=== PATIENT | female | born 1970 | race Caucasian/White ===

== ENCOUNTER 2017-12-12 18:56 | Inpatient (IN) | payer OTHER ==
[2017-12-12 20:07] LABS: BASO # 0.1 K/uL (0.0-0.2); BASO % 0.9 % (0.0-2.0); EOS # 0.2 K/uL (0.0-0.7); EOS % 1.6 % (0.0-4.0); LYMPH # 0.9 K/uL (1.0-4.3); LYMPH % 8.8 % (20.0-40.0); MEAN CELL VOLUME 97.1 fl (81.0-99.0); MEAN CORPUSCULAR HEMOGLOBIN 33.1 pg (27.0-31.0); MEAN CORPUSCULAR HGB CONC 34.2 g/dL (33.0-37.0); MEAN PLATELET VOLUME 7.8 fl (7.2-11.7); MONO # 0.4 K/uL (0.0-0.8); MONO % 3.5 % (0.0-10.0); NEUT # 9.1 K/uL (1.8-7.0); NEUT % 85.2 % (50.0-75.0); PLATELET COUNT 167 K/uL (130-400); RBC 2.71 Mil/uL (3.80-5.20); RED CELL DISTRIBUTION WIDTH 15.3 % (11.5-14.5); WHITE BLOOD COUNT 10.7 K/uL (4.8-10.8)
[2017-12-12 20:23] LABS: PROTHROMBIN TIME 11.6 Seconds (9.8-13.1)
[2017-12-12 20:24] LABS: PARTIAL THROMBOPLASTIN TIME 25.9 Seconds (25.6-37.1)
[2017-12-12 20:54] LABS: ANISOCYTOSIS SLIGHT; BANDS 2 % (0-2); BASOPHIL 1 % (0-2); EOSINOPHIL 2 % (0-7); LYMPHOCYTE 12 % (20-50); MONOCYTE 5 % (0-10); NEUTROPHIL 78 % (42-75); PLATELET ESTIMATE NORMAL (NORMAL); TOTAL CELLS COUNTED 100
[2017-12-12 20:57] LABS: ALB/GLOB RATIO 1.2 (1.0-2.1); ALBUMIN 4.1 g/dL (3.5-5.0); CALCIUM 8.2 mg/dL (8.4-10.2)
[2017-12-12] MEDS ORDERED: Sod Polystyrene Sulf 15 gm/60 ml Susp PO STA (21:10)
[2017-12-12] MEDS ORDERED: FAMOTIDINE 20 MG PO SCH (22:00)
--- NOTE | 2017-12-12 22:09 | ED PDOC ---
HPI: SOB/CHF/COPD Time Seen by Provider: 12/12/17 19:22 Chief Complaint (Nursing): Weakness/Neurological Deficit Chief Complaint (Provider): Weakness and Body Ache History Per: Patient History/Exam Limitations: no limitations Onset/Duration Of Symptoms: Days (1x) Current Symptoms Are (Timing): Still Present Associated Symptoms: denies: Fever, Chest Pain, Productive Cough Additional Complaint(s): 47 year old female with a history of Nile's granulomatosis and renal disease presents to the ED for body ache and weakness onset for one day. Reports she missed her dialysis for the last 5 sessions due to transportation issues. Currently, she feels weak and has fatigue. Patient also has shortness of breath at times. She denies fever, cough, or chest pain. PMD: Alfa Yancey Past Medical History Reviewed: Historical Data, Nursing Documentation, Vital Signs Vital Signs: Last Vital Signs Temp 98.6 F 12/13/17 00:00 Pulse 90 12/13/17 00:00 Resp 18 12/13/17 00:00 BP 147/94 H 12/13/17 00:00 Pulse Ox 100 12/13/17 00:00 - Medical History PMH: Anxiety, Depression, Seizures Other PMH: Nile's granulomatosis and renal disease - Surgical History Other surgeries: left arteriovenous fistula - Family History Family History: States: Unknown Family Hx - Social History Current smoker - smoking cessation education provided: No Alcohol: None Drugs: Denies - Immunization History Hx Tetanus Toxoid Vaccination: No Hx Influenza Vaccination: No Hx Pneumococcal Vaccination: No - Home Medications Home Medications: Ambulatory Orders Medication Instructions Recorded Alprazolam [Alprazolam Odt] 1 mg PO HS PRN 12/12/17 Budesonide [Pulmicort Respules] 0.5 mg IH BID 12/12/17 Cyanocobalamin [Vitamin B12 1000 1 ml IM QWK 12/12/17 mcg/ml Inj] Divalproex [Depakote ER] 250 mg PO BID 12/12/17 Fluoxetine HCl [Prozac] 40 mg PO DAILY 12/12/17 Folic Acid 1 mg PO DAILY 12/12/17 Gabapentin [Neurontin] 100 mg PO BID 12/12/17 Magnesium Oxide [Mag-Ox] 400 mg PO BID 12/12/17 Mirtazapine [Remeron] 15 mg PO HS 12/12/17 Pantoprazole Sodium [Protonix] 40 mg PO DAILY 12/12/17 predniSONE [predniSONE Tab] 5 mg PO DAILY 12/12/17 - Allergies Allergies/Adverse Reactions: Allergies Allergy/AdvReac Type Severity Reaction Status Date / Time No Known Allergies Allergy Unverified 07/15/13 11:18 Review of Systems ROS Statement: Except As Marked, All Systems Reviewed And Found Negative Constitutional: Positive for: Weakness, Other (body ache). Negative for: Fever Cardiovascular: Negative for: Chest Pain Respiratory: Positive for: Shortness of Breath. Negative for: Cough Physical Exam - Reviewed Nursing Documentation Reviewed: Yes Vital Signs Reviewed: Yes - Physical Exam Appears: Positive for: Non-toxic, No Acute Distress. Negative for: Well ( cachectic) Head Exam: Positive for: ATRAUMATIC, NORMAL INSPECTION, NORMOCEPHALIC Skin: Negative for: Normal Color (vitiligo) Eye Exam: Positive for: EOMI, Normal appearance, PERRL ENT: Positive for: Normal ENT Inspection, Other (facial deformity of nose and mouth, cleft lift (result of Nile's granulomatosis)) Neck: Positive for: Normal, Painless ROM, Supple. Negative for: Decreased ROM Cardiovascular/Chest: Positive for: Regular Rate, Rhythm. Negative for: Murmur Respiratory: Positive for: Normal Breath Sounds. Negative for: Decreased Breath Sounds, Accessory Muscle Use, Respiratory Distress Gastrointestinal/Abdominal: Positive for: Normal Exam, Bowel Sounds, Soft. Negative for: Tenderness, Guarding, Rebound Back: Positive for: Normal Inspection. Negative for: L CVA Tenderness, R CVA Tenderness Extremity: Positive for: Normal ROM. Negative for: Tenderness, Pedal Edema, Deformity Neurologic/Psych: Positive for: Alert, Oriented (x3). Negative for: Motor/ Sensory Deficits - Laboratory Results Result Diagrams: 12/12/17 19:30 12/12/17 20:00 - ECG O2 Sat by Pulse Oximetry: 97 (RA) Pulse Ox Interpretation: Normal Medical Decision Making Medical Decision Making: Time: 1922 Initial Impression: 47 year old female with weakness due to missed dialysis Initial Plan: --EKG --CMP --Valproic Acid --CBC w/ Differential --PTT --Prothrombin Time --Chest Portable [RAD] --Morphine 2 mg --kayeXALATE 30gm --IV INsertion --Reevaluation Time: [address] Watkins, her forest fire officer. Patient will be admitted for dialysis. Case referred to the hospitalist, Dr. Ramos for metabolic acidosis, hyperkalemia, ESRD. Scribe Attestation: Documented by Melissa Wilkinson, acting as a scribe for Tremaine Garza MD Provider Scribe Attestation: All medical record entries made by the Scribe were at my direction and personally dictated by me. I have reviewed the chart and agree that the record accurately reflects my personal performance of the history, physical exam, medical decision making, and the department course for this patient. I have also personally directed, reviewed, and agree with the discharge instructions and disposition. Disposition - Clinical Impression Clinical Impression: Generalized muscle weakness, ESRD (end stage renal disease) on dialysis, Metabolic acidosis, Hyperkalemia - Patient ED Disposition Is Patient to be Admitted: Yes Discussed With DrMaria Del Carmen: Gm Watkins (Dr Ramos) - Disposition Disposition Time: 20:30 Condition: FAIR
--- NOTE | 2017-12-12 22:43 | CP.PCM.HP ---
History of Present Illness - History of Present Illness History of Present Illness: CC: missed HD several times HPI: This is a 47 y/o female with ESRD on HD, Nile's granulomatosis, and seizure disorder who comes in to the ED for generalized weakness and bodyaches for about 1 day. She states that she has missed her last 5 HD sessions because of issues with transportation. In addition to weakness, patient states she does have some nausea but no vomiting, and she has some SOB. Denies f/c. Denies cough. Denies CP. ROS: 14 systems reviewed, negative other than HPI MHx: Nile's granulomatosis, seizure disorder, ESRD on HD SHx: L AV fistula for dialysis Allergies: NKDA Medications: Per med rec, pending complettion Family Hx: Patient does not note any family relevant family Hx Social Hx: Lives with family, no tobacco, no EtOH Present on Admission - Present on Admission Any Indicators Present on Admission: No Past Patient History - Past Social History Alcohol: None Drugs: Denies - NEUROLOGICAL Hx Seizures: Yes - PSYCHIATRIC Hx Anxiety: Yes Hx Depression: Yes Meds Allergies/Adverse Reactions: Allergies Allergy/AdvReac Type Severity Reaction Status Date / Time No Known Allergies Allergy Unverified 07/15/13 11:18 Physical Exam - Constitutional Appears: No Acute Distress - Head Exam Head Exam: ATRAUMATIC, NORMOCEPHALIC - Eye Exam Eye Exam: EOMI, PERRL - ENT Exam ENT Exam: Mucous Membranes Moist Additional comments: nasal (saddle) deformity - Neck Exam Neck exam: Positive for: Full Rom - Respiratory Exam Respiratory Exam: Clear to Auscultation Bilateral, NORMAL BREATHING PATTERN - Cardiovascular Exam Cardiovascular Exam: REGULAR RHYTHM, +S1, +S2 - GI/Abdominal Exam GI & Abdominal Exam: Normal Bowel Sounds, Soft - Extremities Exam Extremities exam: Positive for: full ROM, normal inspection Additional comments: LUE fistula with bruit and thrill - Neurological Exam Neurological exam: Alert, CN II-XII Intact, Oriented x3 - Psychiatric Exam Psychiatric exam: Normal Affect, Normal Mood - Skin Skin Exam: Dry, Warm Results - Vital Signs Recent Vital Signs: Last Vital Signs Temp 98 F 12/12/17 20:29 Pulse 92 H 12/12/17 20:29 Resp 18 12/12/17 20:29 BP 141/98 H 12/12/17 20:29 Pulse Ox 97 12/12/17 22:31 - Labs Result Diagrams: 12/12/17 19:30 12/12/17 20:00 Labs: Laboratory Results - last 24 hr 12/12/17 12/12/17 12/12/17 19:30 19:45 20:00 WBC 10.7 RBC 2.71 L Hgb 9.0 L Hct 26.3 L MCV 97.1 MCH 33.1 H MCHC 34.2 RDW 15.3 H Plt Count 167 MPV 7.8 Neut % (Auto) 85.2 H Lymph % (Auto) 8.8 L [place] % (Auto) 3.5 Eos % (Auto) 1.6 Baso % (Auto) 0.9 Neut # (Auto) 9.1 H Lymph # (Auto) 0.9 L [place] # (Auto) 0.4 Eos # (Auto) 0.2 Baso # (Auto) 0.1 Neutrophils % (Manual) 78 H Band Neutrophils % 2 Lymphocytes % (Manual) 12 L Monocytes % (Manual) 5 Eosinophils % (Manual) 2 Basophils % (Manual) 1 Platelet Estimate Normal Anisocytosis (manual) Slight Macrocytosis (manual) Slight PT 11.6 INR 1.0 APTT 25.9 Sodium 140 Potassium 5.5 H Chloride 113 H Carbon Dioxide 11 L* Anion Gap 22 H BUN 89 H Creatinine 9.5 H* Est GFR ( Amer) 5 Est GFR (Non-Af Amer) 4 Random Glucose 90 Calcium 8.2 L Total Bilirubin 0.2 AST 30 ALT 26 Alkaline Phosphatase 144 H Total Protein 7.4 Albumin 4.1 Globulin 3.4 Albumin/Globulin Ratio 1.2 Valproic Acid 12/12/17 20:00 WBC RBC Hgb Hct MCV MCH MCHC RDW Plt Count MPV Neut % (Auto) Lymph % (Auto) [place] % (Auto) Eos % (Auto) Baso % (Auto) Neut # (Auto) Lymph # (Auto) [place] # (Auto) Eos # (Auto) Baso # (Auto) Neutrophils % (Manual) Band Neutrophils % Lymphocytes % (Manual) Monocytes % (Manual) Eosinophils % (Manual) Basophils % (Manual) Platelet Estimate Anisocytosis (manual) Macrocytosis (manual) PT INR APTT Sodium Potassium Chloride Carbon Dioxide Anion Gap BUN Creatinine Est GFR ( Amer) Est GFR (Non-Af Amer) Random Glucose Calcium Total Bilirubin AST ALT Alkaline Phosphatase Total Protein Albumin Globulin Albumin/Globulin Ratio Valproic Acid < 10.0 L - EKG Data EKG Interpreted by: Myself EKG shows normal: Sinus rhythm Rate: Normal - EKG Data EKG comments: no EKG signs of hyper K - Imaging and Cardiology Chest x-ray Status: Image reviewed by me (No acute findings) Assessment & Plan (1) ESRD (end stage renal disease) on dialysis Assessment and Plan: 47 y/o female with ESRD 2/2 Nile's and also ?seizure disorder who comes in after having missed multiple dialysis sessions. 1) ESRD on HD -Consult renal (Watkins) -HD for either today or tmrw AM (decision pending renal) -Repeat BMP in AM -Patient received a dose of kayexelate 2) Seizure disorder -- Pending patient's home med/dose to be identified to enter 3) DVT PPx -- SQ heparin Status: Acute (2) Wegeners granulomatosis Status: Acute (3) Seizure disorder Status: Acute (4) DVT prophylaxis Status: Acute
[2017-12-13] MEDS ORDERED: ALPRAZOLAM 1 MG PO PRN (00:39)
[2017-12-13] MEDS: Oxycodone/Acetaminophen 5/325 mg Tab PO PRN ×2 (01:07→10:23)
[2017-12-13 05:25] LABS: BASO # 0.1 K/uL (0.0-0.2); BASO % 1.3 % (0.0-2.0); EOS # 0.2 K/uL (0.0-0.7); EOS % 2.2 % (0.0-4.0); HEMOGLOBIN 8.8 g/dL (12.0-16.0); LYMPH # 1.7 K/uL (1.0-4.3); LYMPH % 17.9 % (20.0-40.0); MEAN CELL VOLUME 97.4 fl (81.0-99.0); MEAN CORPUSCULAR HEMOGLOBIN 33.1 pg (27.0-31.0); MEAN PLATELET VOLUME 7.9 fl (7.2-11.7); MONO # 0.5 K/uL (0.0-0.8); MONO % 5.7 % (0.0-10.0); NEUT # 6.8 K/uL (1.8-7.0); NEUT % 72.9 % (50.0-75.0); RBC 2.66 Mil/uL (3.80-5.20); RED CELL DISTRIBUTION WIDTH 15.8 % (11.5-14.5); WHITE BLOOD COUNT 9.3 K/uL (4.8-10.8)
[2017-12-13 05:51] LABS: CALCIUM 8.3 mg/dL (8.4-10.2)
--- NOTE | 2017-12-13 07:40 | RAD ---
HISTORY: sob COMPARISON: Chest radiograph 06/17/2013. FINDINGS: LUNGS: No acute infiltrates bilaterally. Bilateral nipple shadows are suggested at the bases but follow-up nipple marked chest radiograph advised to exclude true nodules. PLEURA: No significant pleural effusion identified, no pneumothorax apparent. CARDIOVASCULAR: Normal. OSSEOUS STRUCTURES: S shaped scoliotic thoracolumbar spinal deformity is reiterated. VISUALIZED UPPER ABDOMEN: Normal. OTHER FINDINGS: None. IMPRESSION: No acute infiltrate or cardiovascular disease appreciated bilaterally. Bilateral nipple shadows are suggested at the bases for which follow-up nipple marked chest radiography is advised to exclude nodules. PA review submitted.
[2017-12-13 07:50] VITALS: RESP 20
--- NOTE | 2017-12-13 08:27 | CP.PCM.CON ---
History of Present Illness - History of Present Illness History of Present Illness: Patient is a 47 years of age female known to be with end stage renal disease on maintenance hemodialysis. Patient reported that she did not go for dialysis and she missed dialysis for a few times and she came to the emergency room complaining of shortness of breath and metabolic acidosis noted in the blood work for which she was admitted for further evaluation. Patient was on hemodialysis at [facility] and then she moved to [place] and then apparently she moved back to [facility] in a month ago and she is being dialyze [facility]. Past medical history patient has history of Nile granulomatosis. Hypertension end stage renal disease also she has been admitted to [facility] as noted in the record? Social history not contributory MHx: Nile's granulomatosis, seizure disorder, ESRD on HD SHx: L AV fistula for dialysis Allergies: NKDA Medications: Per med rec, pending complettion Family Hx: Patient does not note any family relevant family Hx Social Hx: Lives with family, no tobacco, no EtOH Review of Systems - Review of Systems Systems not reviewed;Unavailable: Respiratory Distress - Constitutional Constitutional: Anorexia. absent: Chills - EENT Nose/Mouth/Throat: Nasal Congestion - Cardiovascular Cardiovascular: Dyspnea on Exertion. absent: Chest Pain, Edema, Leg Edema - Respiratory Respiratory: Cough, Chest Congestion. absent: Hemoptysis - Gastrointestinal Gastrointestinal: absent: Abdominal Pain, Coffee Ground Emesis, Dysphagia, Loose Stools - Genitourinary Genitourinary: Nocturia - Musculoskeletal Musculoskeletal: Muscle Weakness. absent: Back Pain - Neurological Neurological: absent: Confusion, Numbness, Focal Weakness - Psychiatric Psychiatric: Abnormal Sleep Pattern. absent: Anxiety - Endocrine Endocrine: Fatigue - Hematologic/Lymphatic Hematologic: absent: Easy Bleeding Past Patient History - Past Medical History & Family History Past Medical History?: Yes - Past Social History Alcohol: None Drugs: Denies - CARDIAC Hx Cardiac Disorders: No - PULMONARY Hx Respiratory Disorders: No - NEUROLOGICAL Hx Seizures: Yes - HEENT Hx HEENT Problems: No - RENAL Hx Chronic Kidney Disease: Yes Hx Dialysis: Yes Type of Dialysis Access: MOIRA AV SHUNT - ENDOCRINE/METABOLIC Hx Endocrine Disorders: No - HEMATOLOGICAL/ONCOLOGICAL Hx Blood Disorders: Yes Other/Comment: NILE'S GRANULOMATOSIS - INTEGUMENTARY Hx Dermatological Problems: No - MUSCULOSKELETAL/RHEUMATOLOGICAL Hx Musculoskeletal Disorders: No Hx Falls: No - GASTROINTESTINAL Hx Gastrointestinal Disorders: No - GENITOURINARY/GYNECOLOGICAL Hx Genitourinary Disorders: No - PSYCHIATRIC Hx Anxiety: Yes Hx Depression: Yes - SURGICAL HISTORY Hx Surgeries: Yes Hx Vascular Access Device: Yes (AV SHUNT PLACEMENT) Other/Comment: FACIAL SURGERY - ANESTHESIA Hx Anesthesia: Yes Hx Anesthesia Reactions: No Hx Malignant Hyperthermia: No Meds Home Medications: Home Medication List Medication Instructions Recorded Confirmed Type Alprazolam [Alprazolam Odt] 1 mg PO HS PRN #30 tab.rapdis 12/13/17 Rx Budesonide [Pulmicort Respules] 0.5 mg IH BID #60 neb 12/13/17 Rx Divalproex [Depakote ER] 250 mg PO BID #60 ter 12/13/17 Rx Fluoxetine HCl [Prozac] 40 mg PO DAILY #30 capsule 12/13/17 Rx Folic Acid 1 mg PO DAILY #30 tab 12/13/17 Rx Gabapentin [Neurontin] 100 mg PO BID #60 cap 12/13/17 Rx Magnesium Oxide [Mag-Ox] 400 mg PO BID #60 tab 12/13/17 Rx Mirtazapine [Remeron] 15 mg PO HS #30 tab 12/13/17 Rx Pantoprazole Sodium [Protonix] 40 mg PO DAILY #30 tablet. 12/13/17 Rx predniSONE [predniSONE Tab] 5 mg PO DAILY #30 tab 12/13/17 Rx Allergies/Adverse Reactions: Allergies Allergy/AdvReac Type Severity Reaction Status Date / Time No Known Allergies Allergy Unverified 07/15/13 11:18 - Medications Medications: Current Medications Acetaminophen (Tylenol 325mg Tab) 650 mg PO Q6 PRN PRN Reason: Pain, Mild (1-3) Alprazolam (Xanax) 1 mg PO HS PRN PRN Reason: Anxiety Last Admin: 12/13/17 01:07 Dose: 1 mg Budesonide (Pulmicort Respules) 0.5 mg IH BID FABIANA Last Admin: 12/13/17 08:04 Dose: 0.5 mg Cyanocobalamin (Vitamin B12 1000 Mcg/Ml Inj) 1,000 mcg IM QWK FABIANA Divalproex Sodium (Depakote Er(Once Daily)) 250 mg PO BID FABIANA Famotidine (Pepcid) 20 mg PO HS FABIANA Last Admin: 12/13/17 01:06 Dose: 20 mg Fluoxetine HCl (Prozac) 40 mg PO DAILY FABIANA Folic Acid (Folic Acid) 1 mg PO DAILY FABIANA Gabapentin (Neurontin) 100 mg PO BID [facility] Heparin Sodium (Porcine) (Heparin) 5,000 units SC Q8 FABIANA PRN Reason: Protocol Last Admin: 12/13/17 01:06 Dose: 5,000 units Magnesium Oxide (Mag-Ox) 400 mg PO BID FABIANA Mirtazapine (Remeron) 15 mg PO HS FABIANA Last Admin: 12/13/17 01:06 Dose: 15 mg Oxycodone/Acetaminophen (Percocet 5/325 Mg Tab) 1 tab PO Q4 PRN PRN Reason: Pain, moderate (4-7) Stop: 12/16/17 00:44 Last Admin: 12/13/17 01:07 Dose: 1 tab Pantoprazole Sodium (Protonix Ec Tab) 40 mg PO DAILY FABIANA Prednisone (Prednisone Tab) 5 mg PO DAILY [facility] Physical Exam - Constitutional Appears: No Acute Distress - Eye Exam Eye Exam: Conjunctival injection - ENT Exam Additional comments: deformity of the nose - Neck Exam Neck exam: Negative for: Lymphadenopathy - Respiratory Exam Respiratory Exam: Rhonchi, NORMAL BREATHING PATTERN. absent: Chest Wall Tenderness - Cardiovascular Exam Cardiovascular Exam: REGULAR RHYTHM. absent: Gallop, JVD, Rubs - GI/Abdominal Exam GI & Abdominal Exam: Normal Bowel Sounds. absent: Guarding - Extremities Exam Extremities exam: Negative for: calf tenderness - Back Exam Back exam: absent: CVA tenderness (L), CVA tenderness (R) - Neurological Exam Neurological exam: Alert Results - Vital Signs Recent Vital Signs: Last Vital Signs Temp 98.2 F 12/13/17 07:49 Pulse 96 H 12/13/17 07:49 Resp 20 12/13/17 07:49 BP 162/97 H 12/13/17 07:49 Pulse Ox 99 12/13/17 07:49 - Labs Result Diagrams: 12/13/17 04:20 12/13/17 04:20 Labs: Laboratory Results - last 24 hr 12/12/17 12/12/17 12/12/17 19:30 19:45 20:00 WBC 10.7 RBC 2.71 L Hgb 9.0 L Hct 26.3 L MCV 97.1 MCH 33.1 H MCHC 34.2 RDW 15.3 H Plt Count 167 MPV 7.8 Neut % (Auto) 85.2 H Lymph % (Auto) 8.8 L [place] % (Auto) 3.5 Eos % (Auto) 1.6 Baso % (Auto) 0.9 Neut # (Auto) 9.1 H Lymph # (Auto) 0.9 L [place] # (Auto) 0.4 Eos # (Auto) 0.2 Baso # (Auto) 0.1 Neutrophils % (Manual) 78 H Band Neutrophils % 2 Lymphocytes % (Manual) 12 L Monocytes % (Manual) 5 Eosinophils % (Manual) 2 Basophils % (Manual) 1 Platelet Estimate Normal Anisocytosis (manual) Slight Macrocytosis (manual) Slight PT 11.6 INR 1.0 APTT 25.9 Sodium 140 Potassium 5.5 H Chloride 113 H Carbon Dioxide 11 L* Anion Gap 22 H BUN 89 H Creatinine 9.5 H* Est GFR ( Amer) 5 Est GFR (Non-Af Amer) 4 Random Glucose 90 Calcium 8.2 L Total Bilirubin 0.2 AST 30 ALT 26 Alkaline Phosphatase 144 H Total Protein 7.4 Albumin 4.1 Globulin 3.4 Albumin/Globulin Ratio 1.2 Valproic Acid 12/12/17 12/13/17 12/13/17 20:00 04:20 04:20 WBC 9.3 RBC 2.66 L Hgb 8.8 L Hct 25.9 L MCV 97.4 MCH 33.1 H MCHC 34.0 RDW 15.8 H Plt Count 163 MPV 7.9 Neut % (Auto) 72.9 Lymph % (Auto) 17.9 L [place] % (Auto) 5.7 Eos % (Auto) 2.2 Baso % (Auto) 1.3 Neut # (Auto) 6.8 Lymph # (Auto) 1.7 [place] # (Auto) 0.5 Eos # (Auto) 0.2 Baso # (Auto) 0.1 Neutrophils % (Manual) Band Neutrophils % Lymphocytes % (Manual) Monocytes % (Manual) Eosinophils % (Manual) Basophils % (Manual) Platelet Estimate Anisocytosis (manual) Macrocytosis (manual) PT INR APTT Sodium 139 Potassium 5.2 H Chloride 114 H Carbon Dioxide 12 L Anion Gap 18 BUN 101 H* Creatinine 9.5 H* Est GFR ( Amer) 5 Est GFR (Non-Af Amer) 4 Random Glucose 87 Calcium 8.3 L Total Bilirubin AST ALT Alkaline Phosphatase Total Protein Albumin Globulin Albumin/Globulin Ratio Valproic Acid < 10.0 L Assessment & Plan (1) ESRD (end stage renal disease) on dialysis Assessment and Plan: End stage renal disease patient missing dialysis she is having dialysis . Hyperkalemia will be corrected after dialysis. Metabolic acidosis most likely would be corrected post dialysis The rest of the medical problem as noted with history of seizure disorder and [place] disease as reported follow-up by the primary care team. Patient scheduled to have dialysis as outpatient at [place] with a animal nutritionist at that location. Patient has history of hyperphosphatemia History of secondary hyperparathyroidism History of noncompliance. Anemia / continue EPO Status: Acute (2) Generalized muscle weakness Status: Acute (3) Hyperkalemia Status: Acute (4) Metabolic acidosis Status: Acute (5) Seizure disorder Status: Acute (6) Wegeners granulomatosis Status: Acute
[2017-12-13] MEDS: Magnesium Oxide 400 mg Tab UD PO SCH ×2 (08:41→13:16)
--- NOTE | 2017-12-13 08:48 | CP.PCM.DIS ---
Provider - Provider Date of Admission: 12/12/17 21:14 Attending physician: Debbie Ramos MD Primary care physician: None Consults: nephrology consult SW consult Time Spent in preparation of Discharge (in minutes): 10 Hospital Course - Lab Results Lab Results: Most Recent Lab Values WBC 9.3 K/uL (4.8-10.8) 12/13/17 04:20 RBC 2.66 Mil/uL (3.80-5.20) L 12/13/17 04:20 Hgb 8.8 g/dL (12.0-16.0) L 12/13/17 04:20 Hct 25.9 % (34.0-47.0) L 12/13/17 04:20 MCV 97.4 fl (81.0-99.0) 12/13/17 04:20 MCH 33.1 pg (27.0-31.0) H 12/13/17 04:20 MCHC 34.0 g/dL (33.0-37.0) 12/13/17 04:20 RDW 15.8 % (11.5-14.5) H 12/13/17 04:20 Plt Count 163 K/uL (130-400) 12/13/17 04:20 MPV 7.9 fl (7.2-11.7) 12/13/17 04:20 Neut % (Auto) 72.9 % (50.0-75.0) 12/13/17 04:20 Lymph % (Auto) 17.9 % (20.0-40.0) L 12/13/17 04:20 Storey % (Auto) 5.7 % (0.0-10.0) 12/13/17 04:20 Eos % (Auto) 2.2 % (0.0-4.0) 12/13/17 04:20 Baso % (Auto) 1.3 % (0.0-2.0) 12/13/17 04:20 Neut # (Auto) 6.8 K/uL (1.8-7.0) 12/13/17 04:20 Lymph # (Auto) 1.7 K/uL (1.0-4.3) 12/13/17 04:20 Storey # (Auto) 0.5 K/uL (0.0-0.8) 12/13/17 04:20 Eos # (Auto) 0.2 K/uL (0.0-0.7) 12/13/17 04:20 Baso # (Auto) 0.1 K/uL (0.0-0.2) 12/13/17 04:20 Neutrophils % (Manual) 78 % (42-75) H 12/12/17 19:30 Band Neutrophils % 2 % (0-2) 12/12/17 19:30 Lymphocytes % (Manual) 12 % (20-50) L 12/12/17 19:30 Monocytes % (Manual) 5 % (0-10) 12/12/17 19:30 Eosinophils % (Manual) 2 % (0-7) 12/12/17 19:30 Basophils % (Manual) 1 % (0-2) 12/12/17 19:30 Platelet Estimate Normal (NORMAL) 12/12/17 19:30 Anisocytosis (manual) Slight 12/12/17 19:30 Macrocytosis (manual) Slight 12/12/17 19:30 PT 11.6 Seconds (9.8-13.1) 12/12/17 19:45 INR 1.0 (0.9-1.2) 12/12/17 19:45 APTT 25.9 Seconds (25.6-37.1) 12/12/17 19:45 Sodium 139 mmol/l (132-148) 12/13/17 04:20 Potassium 5.2 MMOL/L (3.6-5.0) H 12/13/17 04:20 Chloride 114 mmol/L (98-107) H 12/13/17 04:20 Carbon Dioxide 12 mmol/L (22-30) L 12/13/17 04:20 Anion Gap 18 (10-20) 12/13/17 04:20 BUN 101 mg/dl (7-17) H* 12/13/17 04:20 Creatinine 9.5 mg/dl (0.7-1.2) H* 12/13/17 04:20 Est GFR ( Amer) 5 12/13/17 04:20 Est GFR (Non-Af Amer) 4 12/13/17 04:20 Random Glucose 87 mg/dL (65-105) 12/13/17 04:20 Calcium 8.3 mg/dL (8.4-10.2) L 12/13/17 04:20 Total Bilirubin 0.2 mg/dl (0.2-1.3) 12/12/17 20:00 AST 30 U/L (14-36) 12/12/17 20:00 ALT 26 U/L (9-52) 12/12/17 20:00 Alkaline Phosphatase 144 U/L (38-126) H 12/12/17 20:00 Total Protein 7.4 G/DL (6.3-8.2) 12/12/17 20:00 Albumin 4.1 g/dL (3.5-5.0) 12/12/17 20:00 Globulin 3.4 gm/dL (2.2-3.9) 12/12/17 20:00 Albumin/Globulin Ratio 1.2 (1.0-2.1) 12/12/17 20:00 Valproic Acid < 10.0 ug/mL (50.0-100.0) L 12/12/17 20:00 - Hospital Course Hospital Course: 47 y/o female with ESRD on HD, Nile's granulomatosis, and seizure disorder came to the ED for generalized weakness and bodyaches for about 1 day. She has missed her last 5 HD sessions because of issues with transportation. In addition to weakness, patient states she does have some nausea but no vomiting, and she has some SOB. Denies f/c. Denies cough. Denies CP. In Er found to be having BUN /Cr 101/9.5 K 5.2 , AAOx3 , no fluid overload HCO3 12 Patient was placed under observation and nephrology was consulted and HD ordered. LISA consulted about arrangements with transportation. Patient now has medicaid and as a result she has transportation benefit to and from HD center covered. Arrangements made by LISA Patient sattes that she has no r[rescriptions left so will provide prescriptions for 1 month ( meds to bed ) until patient finds a PMD Will d/c patient home Follow up with HD as scheduled 1.ESRD on HD secondary to Pau granulomatosis Missed HD -- five sessions so presenting with metabolic acidosis and hyperkalemia Nephrology consulted and HD orderd Received HD today Arrangements made to continue with [facility] as outpatient 2.Seizure disorder on Depakote 3. Depression on Remeron ,prozac and Xanax 4. 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 absent: Rhonchi, Wheezes - Cardiovascular Exam Cardiovascular Exam: REGULAR RHYTHM, +S1, +S2. absent: JVD - GI/Abdominal Exam GI & Abdominal Exam: Normal Bowel Sounds, Soft. absent: Distended, Guarding, Rebound, Tenderness - Rectal Exam Rectal Exam: Deferred - Extremities Exam Extremities exam: normal inspection, pedal pulses present - Back Exam Back exam: NORMAL INSPECTION - Neurological Exam Neurological exam: Alert, CN II-XII Intact, Oriented x3, Reflexes Normal - Psychiatric Exam Psychiatric exam: Normal Affect - Skin Skin Exam: Dry, Warm Discharge Plan - Discharge Medications Prescriptions: Alprazolam [Alprazolam Odt] 1 mg PO HS PRN #30 tab.rapdis PRN Reason: Anxiety Budesonide [Pulmicort Respules] 0.5 mg IH BID #60 neb Divalproex [Depakote ER] 250 mg PO BID #60 ter Fluoxetine HCl [Prozac] 40 mg PO DAILY #30 capsule Folic Acid 1 mg PO DAILY #30 tab Gabapentin [Neurontin] 100 mg PO BID #60 cap Magnesium Oxide [Mag-Ox] 400 mg PO BID #60 tab Mirtazapine [Remeron] 15 mg PO HS #30 tab Pantoprazole Sodium [Protonix] 40 mg PO DAILY #30 tablet. predniSONE [predniSONE Tab] 5 mg PO DAILY #30 tab - Follow Up Plan Condition: STABLE Disposition: HOME/ ROUTINE Patient education suggested?: Yes Instructions: End Stage Kidney Disease (DC) Additional Instructions: continue dialysis tts follow up with dr alston in 1 week logistic care transportation scheduled tack picker for 6pm for dialysis at 700PM on - and monday for [facility]. Referrals: Srinivas Alston MD [Staff Provider] -
[2017-12-13] MEDS ORDERED: FLUOXETINE HCL 40 MG PO SCH (09:00)
[2017-12-13] MEDS ORDERED: Pantoprazole 40 mg EC Tab PO SCH (09:00)
[2017-12-13] MEDS ORDERED: Divalproex 250 mg ER (ONCE DAILY formulation) PO SCH (09:00)
[2017-12-13] MEDS ORDERED: Budesonide 0.5 mg/2 ml Inhal Susp UD IH SCH (09:00)
--- NOTE | 2017-12-13 11:41 | CARD ---
APPROVED REPORT EKG Measurement Heart [id number] <Conclusion> Normal sinus rhythm Biatrial enlargement Nonspecific ST and T wave abnormality Abnormal ECG
[2017-12-13 12:20] VITALS: BP 122/81; TEMP 98.1
[2017-12-13 12:29] VITALS: PULSE 98; O2SAT 98
[2017-12-13] MEDS ORDERED: Divalproex 250 mg DR(BID formulation) PO SCH (14:00)
--- NOTE | 2017-12-13 14:57 | CP.PCM.PN ---
Subjective - Date & Time of Evaluation Date of Evaluation: 12/13/17 Time of Evaluation: 11:30 - Subjective Subjective: Dialysis note Patient with end stage renal disease admitted because of missing dialysis for a few times. And she presented with hyperkalemia and metabolic acidosis. Patient complaining of weakness Hemodialysis started couple hours. Patient vital sign review to be stable. Objective - Vital Signs/Intake and Output Vital Signs (last 24 hours): Temp Pulse Resp BP Pulse Ox 98.1 F 98 H 20 122/81 98 12/13/17 12:28 12/13/17 12:28 12/13/17 12:28 12/13/17 12:28 12/13/17 12:28 - Medications Medications: Current Medications Acetaminophen (Tylenol 325mg Tab) 650 mg PO Q6 PRN PRN Reason: Pain, Mild (1-3) Alprazolam (Xanax) 1 mg PO HS PRN PRN Reason: Anxiety Last Admin: 12/13/17 01:07 Dose: 1 mg Budesonide (Pulmicort Respules) 0.5 mg IH BID [facility] Last Admin: 12/13/17 08:04 Dose: 0.5 mg Cyanocobalamin (Vitamin B12 1000 Mcg/Ml Inj) 1,000 mcg IM QWK [facility] Divalproex Sodium (Depakote Dr(*Bid*)) 250 mg PO BID [facility] Last Admin: 12/13/17 14:37 Dose: 250 mg Famotidine (Pepcid) 20 mg PO HS [facility] Last Admin: 12/13/17 01:06 Dose: 20 mg Fluoxetine HCl (Prozac) 40 mg PO DAILY [facility] Folic Acid (Folic Acid) 1 mg PO DAILY [facility] Last Admin: 12/13/17 13:13 Dose: 1 mg Gabapentin (Neurontin) 100 mg PO BID [facility] Last Admin: 12/13/17 13:14 Dose: 100 mg Heparin Sodium (Porcine) (Heparin) 5,000 units SC Q8 [facility] PRN Reason: Protocol Last Admin: 12/13/17 08:40 Dose: Not Given Magnesium Oxide (Mag-Ox) 400 mg PO BID [facility] Last Admin: 12/13/17 13:16 Dose: 400 mg Mirtazapine (Remeron) 15 mg PO HS [facility] Last Admin: 12/13/17 01:06 Dose: 15 mg Pantoprazole Sodium (Protonix Ec Tab) 40 mg PO DAILY [facility] Last Admin: 12/13/17 13:14 Dose: 40 mg Prednisone (Prednisone Tab) 5 mg PO DAILY [facility] Last Admin: 12/13/17 13:14 Dose: 5 mg - Labs Labs: 12/13/17 04:20 12/13/17 04:20 PT 11.6 Seconds (9.8-13.1) 12/12/17 19:45 INR 1.0 (0.9-1.2) 12/12/17 19:45 APTT 25.9 Seconds (25.6-37.1) 12/12/17 19:45 - Constitutional Appears: No Acute Distress - ENT Exam ENT Exam: Mucous Membranes Moist - Neck Exam Neck Exam: absent: Lymphadenopathy - Respiratory Exam Respiratory Exam: Rhonchi - Cardiovascular Exam Cardiovascular Exam: absent: Gallop, JVD, Rubs - GI/Abdominal Exam GI & Abdominal Exam: Soft, Normal Bowel Sounds. absent: Guarding - Extremities Exam Extremities Exam: absent: Calf Tenderness - Back Exam Back Exam: absent: CVA tenderness (L), CVA tenderness (R) - Neurological Exam Neurological Exam: Alert - Psychiatric Exam Psychiatric exam: Normal Affect - Skin Skin Exam: absent: Cyanosis Assessment and Plan (1) ESRD (end stage renal disease) on dialysis Assessment & Plan: End stage renal disease Patient receiving dialysis Sodium bath 138 Potassium bath 2 mEq Carbonate bath 34 Ultrafiltration 2500 mL as tolerated Patient appeared to be tolerating dialysis okay. Discussed with the dialysis nurse at the bedside. Patient has metabolic acidosis and hyperkalemia expected improved post dialysis. And patient doing much better Status: Acute (2) Generalized muscle weakness Status: Acute (3) Hyperkalemia Status: Acute (4) Metabolic acidosis Status: Acute (5) Seizure disorder Status: Acute (6) Wegeners granulomatosis Status: Acute
== END 2017-12-13 15:07 | disposition home or self-care (01) | DRG 566 ==
LOC: H.ER 18:56 → H.ERHOLD 21:14 → H.TEL 22:36
PROVIDERS: ADMIT Internal Medicine; ATTEND Internal Medicine
PROC: 5A1D70Z Performance of Urinary Filtration, Intermittent, Less than 6 Hours Per Day (ICD-10-PCS; principal; 2017-12-13)
DX: E87.5 Hyperkalemia (principal); M31.30 Wegener's granulomatosis without renal involvement; N18.6 End stage renal disease; R64 Cachexia; E87.2 Acidosis; D63.1 Anemia in chronic kidney disease; G40.909 Epilepsy, unspecified, not intractable, without status epilepticus; F32.9 Major depressive disorder, single episode, unspecified; Z68.1 Body mass index [BMI] 19.9 or less, adult; Z91.15 Patient's noncompliance with renal dialysis; Z91.19 Patient's noncompliance with other medical treatment and regimen; Z99.2 Dependence on renal dialysis; F41.9 Anxiety disorder, unspecified